=== PATIENT | male | born 1990 | race Caucasian/White ===

== ENCOUNTER 2016-09-03 16:56 | Emergency (ER) | payer OTHER ==
[~2016-09-03] VITALS: Ht 170.2 cm; Wt 61.5 kg
[~2016-09-03 16:56] MED LIST: BENZ1CAP34 PO; DICL50TA2 PO
[2016-09-03 16:59] VITALS: BP 121/57; PULSE 48; RESP 15; TEMP 97.5; O2SAT 99
[2016-09-03] MEDS ORDERED: AMBI10TA PO (17:16)
[2016-09-03] MEDS ORDERED: ADDE30TA PO (17:16)
[2016-09-03] MEDS ORDERED: SODIUM CHLOR 0.9% 1000 ML INJ 1,000 ML IV ONE (17:27)
[2016-09-03 17:28] VITALS: RESP 16; O2SAT 99
[2016-09-03] MEDS ORDERED: diphenhydrAMINE HCL 50 MG/ML VIAL IVP ONE (17:30)
[2016-09-03] MEDS ORDERED: DEXAMETHASONE SOD PHOS 20 MG/5 ML VIAL IV PUSH ONE (17:30)
[2016-09-03] MEDS ORDERED: SODIUM CHLORIDE 0.9% FLUSH 10 ML FLUSH IVF PRN (17:30)
[2016-09-03] MEDS ORDERED: METOCLOPRAMIDE HCL 10 MG/2 ML VIAL IVP ONE (17:30)
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
[2016-09-03 18:06] LABS: AUTOMATED NEUTROPHIL # 4.1 TH/MM3 (1.8-7.7); BASOPHIL % 0.6 % (0.0-2.0); EOSINOPHIL # 0.2 TH/MM3 (0-0.4); EOSINOPHIL % 3.2 % (0.0-4.0); HEMATOCRIT 41.1 % (39.0-51.0); HEMO FLAGS DIFF FINAL; LYMPHOCYTE # 2.6 TH/MM3 (1.0-4.8); MEAN CELL VOLUME 87.7 FL (80.0-100.0); MEAN CORPUSCULAR HEMOGLOBIN 29.6 PG (27.0-34.0); MEAN CORPUSCULAR HGB CONC 33.8 % (32.0-36.0); MONO % 5.5 % (0.0-8.0); NEUT % 55.7 % (16.0-70.0); PLATELET COUNT 196 TH/MM3 (150-450); RED BLOOD COUNT 4.68 MIL/MM3 (4.50-5.90); RED CELL DISTRIBUTION WIDTH 12.8 % (11.6-17.2); WHITE BLOOD COUNT 7.4 TH/MM3 (4.0-11.0)
[2016-09-03 18:22] LABS: APTT (PATIENT) 26.3 SEC (24.3-30.1); PROTHROMBIN TIME - PATIENT 11.4 SEC (9.8-11.6)
[2016-09-03 18:30] VITALS: BP 126/77; PULSE 81; RESP 16; O2SAT 99
[2016-09-03 18:35] LABS: ANION GAP 5 MEQ/L (5-15); AST (GOT) 16 U/L (15-37); BICARBONATE 28.7 MEQ/L (21.0-32.0); BLOOD UREA NITROGEN 17 MG/DL (7-18); CHLORIDE 105 MEQ/L (98-107); GLOMERULAR FILTRATION RATE 92 ML/MIN (>89); SODIUM (NA) 139 MEQ/L (136-145)
[2016-09-03 18:38] LABS: ALKALINE PHOSPHATASE 75 U/L (45-117); ALT (GPT) 28 U/L (12-78); TOTAL BILIRUBIN ADULT 0.3 MG/DL (0.2-1.0)
== END 2016-09-03 19:44 | disposition home or self-care (01) ==
LOC: NEPD 16:56
DX: R51 Headache (principal); S06.0X0A Concussion without loss of consciousness, initial encounter; Z87.828 Personal history of other (healed) physical injury and trauma
CPT/HCPCS: 70450; 80053; 85025; 85610; 85730; 96361; 96374; 96375; 99284; J1100; J1200; J2765; J7030